=== PATIENT | female | born 2000 | race Asian ===

== ENCOUNTER 2022-06-09 17:44 | Emergency (ER) | payer BC, SELFPAY ==
[2022-06-09 17:52] VITALS: BP 104/61; PULSE 86; TEMP 36.6; O2SAT 98; BMI 21.9
--- NOTE | 2022-06-09 18:26 | ED.GENADULT ---
HPI - General Adult General Chief complaint: Ear/Nose/Throat Problem Stated complaint: Possible ear infection in R ear Time Seen by Provider: 06/09/22 17:46 History of Present Illness HPI narrative: This 21-year-old female comes in reporting upper respiratory symptoms that began 3 days ago. She noted fever and sore throat. She has some very mild nasal congestion. She now reports some ear pain and has dullness of hearing in her right ear. She does not report any shortness of breath. She states that her tonsils look swollen when she looks in the mirror. Related Data Home Medications Medication Instructions Recorded Confirmed No Known Home Medications 06/09/22 06/09/22 Allergies Allergy/AdvReac Type Severity Reaction Status Date / Time No Known Drug Allergies Allergy Verified 06/09/22 17:55 Review of Systems Status of ROS: Reports: 10 or more systems reviewed and unremarkable except as noted in History and below Narrative: Constitutional: No weight gain or loss. She reports a fever a day or 2 ago. Eyes: No discharge. No vision changes. HENT: Sore throat and ear pain as described above. Cardiovascular: No chest pain, no palpitations. Respiratory: No shortness of breath, no wheezes, no cough. Gastrointestinal: No abdominal pain, no vomiting, no diarrhea. Genitourinary: No dysuria, no hematuria. Musculoskeletal: Normal range of motion. Skin: No rashes, no pruritis. Neurological: No dizziness, weakness, sensory change, speech change. Endo/Heme/Allergies: No bruising or bleeding. No polydipsia. Pysch: no suicidality, no anxiety, no insomnia. All other systems reviewed and are negative. PFSH PFS Social History Smoking Status: Current some day smoker What tobacco products do you use: cigarettes Second hand tobacco smoke exposure: No How often do you have a drink containing alcohol: 2-3 times a week How many standard drinks containing alcohol do you have on a typical day: 1 or 2 How often do you have six or more drinks on one occasion: Never AUDIT-C Alcohol total score: 3 Non-prescribed substance use: denies use Exam Narrative: Exam Narrative: Constitutional: Well-developed, well-nourished, no acute distress. HEENT: Normocephalic, atraumatic. Oropharynx shows moderate tonsillar hypertrophy right greater than left. Left tympanic membrane appears normal. Right tympanic membrane has some dullness in the posterior aspect. There appears to be some evidence pressure change in the middle compartment also. Neck: Normal range of motion. Nontender. Supple. Heart: Regular. No murmurs. Normal rate. Intact distal pulses. Lungs: Clear to auscultation. No chest discomfort. No wheezes, rhonchi, or rales. Abdomen: Normal bowel sounds. Nontender. No rebound tenderness. Genitalia: Deferred. Back: No midline tenderness. Normal range of motion. Extremities: Normal range of motion. No injury. Skin: Intact. No rash. Warm. No erythema or pallor. Neurologic: No altered sensation. No weakness. Alert and oriented. Psychiatric: No suicidality. No anxiety or depression. No insomnia. Nursing notes and vitals signs are reviewed. Const: Vital Signs, click to edit/add: Vital Signs - 24 hr 06/09/22 17:52 Temperature 97.9 F Pulse Rate [Pulse Oximeter] 86 Blood Pressure [Ri ght Upper Arm] 104/61 Pulse Oximetry 98 Oxygen Delivery Me thod Room Air Course Vital Signs Vital signs: Initial Vital Signs Temperature 97.9 F 06/09/22 17:52 Temperature Source Temporal Artery Scan 06/09/22 17:52 Pulse Rate 86 06/09/22 17:52 Blood Pressure 104/61 06/09/22 17:52 Blood Pressure Mean 75 06/09/22 17:52 Blood Pressure Position Sitting 06/09/22 17:52 Pulse Oximetry 98 06/09/22 17:52 Oxygen Delivery Method 06/09/22 17:52 Vital Signs Temperature 97.9 F 06/09/22 17:52 Pulse Rate 86 06/09/22 17:52 Blood Pressure 104/61 06/09/22 17:52 Pulse Oximetry 98 06/09/22 17:52 Oxygen Delivery Method 06/09/22 17:52 Temperature 97.9 F 06/09/22 17:52 Pulse Rate 86 06/09/22 17:52 Blood Pressure 104/61 06/09/22 17:52 Pulse Oximetry 98 06/09/22 17:52 Oxygen Delivery Method 06/09/22 17:52 Discharge Plan Discharge Clinical Impression: Acute tonsillitis Patient Disposition: Home, Self-Care Condition: Stable Additional Instructions: Take medication as prescribed. Use [id number] medicines also as needed and directed. Follow up with MD or return if worsening. Prescriptions: No Action No Known Home Medications Stand Alone Forms: [employer] Info Instructions
== END 2022-06-09 18:36 | disposition home or self-care (01) ==
PROVIDERS: Emergency Provider Emergency Medicine Emergency Medical Services
DX: J03.90 Acute tonsillitis, unspecified (principal)
CPT/HCPCS: 99282; 99283; 99284